=== PATIENT | female | born 1935 | race Caucasian/White ===

== ENCOUNTER 2016-07-10 13:48 | Emergency (ER) | payer MEDICARE, BC, OTHER ==
--- NOTE | 2016-07-10 14:21 | Emergency Department Record ---
History of Present Illness - General Chief Complaint: Neck Injury/Pain Stated Complaint: NECK PAIN /NIGHT TIME CHEST PAIN Time Seen by Provider: 07/10/16 14:00 Source: Patient Mode of Arrival: Ambulatory Limitations: No limitations - History of Present Illness Initial Comments: 80 yo female presents to ED with a CC of left sided, intermittent neck and chest pain symptoms for the past 2 days. Patient reports that her neck pain reoccurred today while at lunch with friends, while her chest pain occurs at night. Patient denies other radiation symptoms, denies fevers, chills, or recent illness symptoms. Patient reports a history of HTN only, denies previous heart or lung problems. Patient denies trauma or injury to the neck. MD Complaint: Neck pain Onset/Timin -: Days(s) Place: Home Radiation: Chest, Other Severity: Mild Severity scale (1-10): 3 Quality: Aching Consistency: Constant, Intermittent Improves With: None Worsens With: None Context: Other Associated Symptoms: None Treatments Prior to Arrival: None - Related Data Home Medications Medication Instructions Recorded Confirmed Last Taken Amlodipine Besylate [Amlodipine 10 mg PO DAILY 03/24/14 07/10/16 07/09/16 Besylate] Furosemide [Lasix] 40 mg PO DAILY 03/24/14 07/10/16 07/09/16 Losartan Potassium 100 mg PO DAILY 03/24/14 07/10/16 07/09/16 Metoprolol Succinate [Toprol Xl] 100 mg PO DAILY 03/24/14 07/10/16 07/09/16 Simvastatin [Zocor 20Mg] 20 mg PO QHS 03/24/14 07/10/16 07/09/16 Duloxetine HCl [Cymbalta] 30 mg PO DAILY 02/19/15 07/10/16 07/09/16 Previous Rx's Medication Instructions Recorded Diazepam [Valium] 5 mg PO Q8H PRN #15 tab 07/10/16 Allergies Allergy/AdvReac Type Severity Reaction Status Date / Time codeine AdvReac NAUSEA AND Verified 07/10/16 14:10 VOMITING meperidine HCl [From Demerol] AdvReac NAUSEA AND Verified 07/10/16 14:10 VOMITING morphine AdvReac NAUSEA AND Verified 07/10/16 14:10 VOMITING Travel Screening - Travel/Exposure Within Last 30 Days Have you traveled within the last 30 days?: No Review of Systems Constitutional: Denies: Chills, Fever, Malaise, Night sweats Eyes: Denies: Eye discharge, Eye pain ENT: Denies: Congestion, Ear pain, Epistaxis Respiratory: Denies: Cough, Dyspnea Cardiovascular: Reports: Chest pain. Denies: Dyspnea on exertion Endocrine: Denies: Fatigue, Heat or cold intolerance Gastrointestinal: Denies: Abdominal pain, Nausea, Vomiting Genitourinary: Denies: Dysuria, Frequency, Hematuria Musculoskeletal: Reports: Neck pain. Denies: Arthralgia, Back pain, Gout, Joint swelling Skin: Denies: Bruising, Change in color Neurological: Denies: Abnormal gait, Confusion, Headache, Seizure Psychiatric: Denies: Anxiety Hematological/Lymphatic: Denies: Anemia, Blood Clots Past Medical History - SOCIAL HISTORY Smoking Status: Never smoker Alcohol Use: None Drug Use: None - RESPIRATORY Hx Respiratory Disorders: No - CARDIOVASCULAR Hx Cardio Disorders: Yes Hx CHF: Yes Hx Edema: Yes Hx Hypertension: Yes Comment:: high cholesterol - NEURO Hx Neuro Disorders: No - GI Hx GI Disorders: Yes Hx of Polyps: Yes - Hx Genitourinary Disorders: No - ENDOCRINE Hx Endocrine Disorders: No - MUSCULOSKELETAL Hx Musculoskeletal Disorders: Yes Hx Back Injury: Yes Hx Gout: Yes - PSYCH Hx Psych Problems: Yes Hx Anxiety: Yes - HEMATOLOGY/ONCOLOGY Hx Hematology/Oncology Disorders: Yes Hx Cancer: Yes (skin (basal & squamous cell)) Family Medical History Any Significant Family History?: Yes Hx Heart Disease: Father, Mother Physical Exam - General General Appearance: Alert, Oriented x3, Cooperative, No acute distress Limitations: No limitations - Head Head exam: Atraumatic, Normocephalic, Normal inspection Head exam detail: negative: Abrasion, Contusion, Hinds's sign, General tenderness, Hematoma, Laceration - Eye Eye exam: Normal appearance. negative: Conjunctival injection, Periorbital swelling, Periorbital tenderness, Scleral icterus - ENT Ear exam: negative: Auricular hematoma, Auricular trauma Nasal Exam: negative: Active bleeding, Discharge, Dried blood, Foreign body Mouth exam: negative: Drooling, Laceration, Muffled voice, Tongue elevation - Neck Neck exam: Normal inspection. negative: Meningismus, Tenderness - Respiratory Respiratory exam: Normal lung sounds bilaterally. negative: Rales, Respiratory distress, Rhonchi, Stridor - Cardiovascular Cardiovascular Exam: Regular rate, Normal rhythm, Normal heart sounds - GI/Abdominal GI/Abdominal exam: Soft. negative: Rebound, Rigid, Tenderness - Rectal Rectal exam: Deferred - exam: Deferred - Extremities Extremities exam: Normal inspection. negative: Calf tenderness, Pedal edema, Tenderness - Back Back exam: Denies: CVA tenderness (R), CVA tenderness (L) - Neurological Neurological exam: Alert, Normal gait, Oriented X3 - Psychiatric Psychiatric exam: Normal affect, Normal mood - Skin Skin exam: Normal color. negative: Abrasion Type of lesion: negative: abrasion Course Vital Signs 07/10/16 14:06 Temperature 97.9 F Pulse Rate 81 Respiratory 20 Rate Blood Pressure 190/80 Pulse Ox 97 - Reevaluation(s) Reevaluation #1: 07/10/16 14:14 EKG: NSR 78 Normal axis, normal intervals ST depression I, AVL, V4-V6 NEW from 08/2004. Reevaluation #2: 07/10/16 14:39 Dr. Rajan has reviewed the patient's EKG, feels that the changes are likely non- significant. Recommends further cardiac evaluation as an outpatient. Patient' s symptoms only occur at night and at rest, and are atypical for a cardiac etiology. Patient has not had pain since last night (17-18 hours ago), therefore 1 Troponin should be sufficient to detect myocardial damage. Awaiting results. Reevaluation #3: 07/10/16 15:04 Labs reviewed, WBC 13.9, labs are otherwise grossly unremarkable for an acute process. CXR: No acute process, healed granulomatous disease. Patient reassessed, reports that she is resting comfortably and has not had pain since last night. Patient appears stable for discharge with instructions to follow-up in the [facility] for outpatient stress testing. Patient agrees with plan as discussed. Medical Decision Making - Lab Data Result diagrams: 07/10/16 14:25 07/10/16 14:25 Disposition Disposition: Discharge Clinical Impression: Muscle spasms of neck, Chest Pain at Rest Disposition: Home, Self-Care Condition: (2) Stable Instructions: Muscle Spasm (ED) Additional Instructions: Return to ED if your symptoms worsen or if you have any concerns. Valium as directed. Follow-up with the [facility] for outpatient stress testing. Follow-up with your family doctor in 3-5 days as directed. Prescriptions: Diazepam [Valium] 5 mg PO Q8H PRN #15 tab PRN Reason: Muscle Spasms Referrals: RANDELL RAJAN M.D. [MEDICAL DOCTOR] - [facility] [Provider Group] Forms: Patient Portal Access Time of Disposition: 15:12
[2016-07-10] MEDS: ASPIRIN 81 MG CHEWABLE TABLET PO ONE (14:23)
[2016-07-10 14:34] LABS: BASO % 0.4 % (0-6); EOS % 0.2 % (0-6); GRAN % 75.8 % (47-80); HEMATOCRIT 39.5 % (35.0-47.0); HEMOGLOBIN 12.9 gm/dl (11.6-16.0); LYMPH % 14.2 % (16-45); MEAN CELL VOLUME 95.9 fl (81-97); MEAN CORPUSCULAR HEMOGLOBIN 31.3 pg (27-33); MEAN CORPUSCULAR HGB CONC 32.7 g/dl (32-36); MEAN PLATELET VOLUME 10.8 fl (7.4-10.4); MONO % 9.4 % (0-9); PLATELET COUNT 243 K/uL (130-400); RED BLOOD COUNT 4.12 M/uL (3.80-5.40); RED CELL DISTRIBUTION WIDTH 12.8 % (11.5-14.5); WHITE BLOOD COUNT W/O DIFF 13.9 K/uL (4.2-12.2)
[2016-07-10 14:50] LABS: ALB/GLOB RATIO 1.6 (1.1-1.8); ALBUMIN 4.7 gm/dL (3.5-5.0); ALKALINE PHOSPHATASE 92 U/L (38-126); ALT/SGPT 32 U/L (9-52); ANION GAP 8.7 (7-16); AST/SGOT 24 U/L (14-36); BILIRUBIN,TOTAL 0.39 mg/dL (0.2-1.3); BLOOD UREA NITROGEN 14 mg/dL (7-17); CARBON DIOXIDE 30.3 mmol/L (22-30); CREATINE PHOSPHOKINASE 80 U/L (30-135); EST GLOMERULAR FILTRATION RATE 57 ml/min; GLUCOSE,RANDOM 254 mg/dL (70-110); TOTAL PROTEIN 7.7 gm/dL (6.3-8.2)
[2016-07-10 15:02] LABS: CKMB 2.2 ug/L (0-6); TROPONIN I < 0.012 ng/mL (0.00-0.034)
--- NOTE | 2016-07-12 13:43 | RADIOLOGY REPORT ---
EXAM: CHEST, TWO VIEWS HISTORY: DIFFUSE CHEST PAIN WORSE WITH LAYING DOWN. TECHNIQUE: Two views of the chest were obtained. Comparison: None. FINDINGS: Scattered calcified lung nodules. The lungs are clear. Calcified AP window lymph node. The cardiac silhouette, diaphragm, and osseous structures are unremarkable. IMPRESSION: NO ACUTE INTRATHORACIC PROCESS. OLD GRANULOMATOUS DISEASE. JOB NUMBER: [id number] MTDD
== END 2016-07-10 15:38 | disposition home or self-care (01) ==
LOC: ER 13:48
DX: R07.89 Other chest pain (principal); M62.838 Other muscle spasm; M54.2 Cervicalgia; I10 Essential (primary) hypertension; I50.9 Heart failure, unspecified
CPT/HCPCS: 71020; 80053; 82550; 82553; 84484; 85025; 93005; 93010; 99284

== ENCOUNTER 2016-08-17 09:58 | Emergency (ER) | payer MEDICARE, BC, OTHER ==
[2016-08-17 10:54] LABS: HEMATOCRIT 32.6 % (35.0-47.0); HEMOGLOBIN 10.1 gm/dl (11.6-16.0); MEAN CELL VOLUME 92.1 fl (81-97); MEAN CORPUSCULAR HEMOGLOBIN 28.5 pg (27-33); PLATELET COUNT 600 K/uL (130-400); RED BLOOD COUNT 3.54 M/uL (3.80-5.40); RED CELL DISTRIBUTION WIDTH 13.7 % (11.5-14.5); WHITE BLOOD COUNT W/O DIFF 14.7 K/uL (4.2-12.2)
[2016-08-17 11:07] LABS: BLOOD UREA NITROGEN 8 mg/dL (7-17); CREATININE 0.6 mg/dL (0.52-1.04); EST GLOMERULAR FILTRATION RATE > 60 ml/min; GLUCOSE,RANDOM 122 mg/dL (70-110)
--- NOTE | 2016-08-17 11:09 | Emergency Department Record ---
History of Present Illness - General Chief complaint: Extremity Problem Stated complaint: RIGHT HAND SWELLING Time Seen by Provider: 08/17/16 10:16 Source: Patient Mode of Arrival: Ambulatory Limitations: No limitations - History of Present Illness Initial comments: pt here for r hand pain. pt has been seen by fam doc who referred pt to [employer] a month ago. pt has been told twice that they did not receive the referral. pt here in frustration as she still does not have an appt and she conts to be in pain. pt has been on a course of steroids MD Complaint: Joint pain, Joint swelling Onset/Timin -: Month(s) Location: Right, Hand -: Yes Arthralgia Severity scale (1-10): 8 Improves with: Nothing Worsens with: Nothing Associated Symptoms: Denies other symptoms - Related Data Home Medications Medication Instructions Recorded Confirmed Last Taken Amlodipine Besylate [Amlodipine 10 mg PO DAILY 03/24/14 08/17/16 08/16/16 Besylate] Furosemide [Lasix] 40 mg PO DAILY 03/24/14 08/17/16 08/17/16 Losartan Potassium 100 mg PO DAILY 03/24/14 08/17/16 08/17/16 Metoprolol Succinate [Toprol Xl] 100 mg PO DAILY 03/24/14 08/17/16 08/17/16 Simvastatin [Zocor 20Mg] 20 mg PO QHS 03/24/14 08/17/16 08/16/16 Duloxetine HCl [Cymbalta] 30 mg PO DAILY 02/19/15 08/17/16 08/17/16 Previous Rx's Medication Instructions Recorded Diazepam [Valium] 5 mg PO Q8H PRN #15 tab 07/10/16 Allergies Allergy/AdvReac Type Severity Reaction Status Date / Time codeine AdvReac NAUSEA AND Verified 07/10/16 14:10 VOMITING meperidine HCl [From Demerol] AdvReac NAUSEA AND Verified 07/10/16 14:10 VOMITING morphine AdvReac NAUSEA AND Verified 07/10/16 14:10 VOMITING Travel Screening - Travel/Exposure Within Last 30 Days Have you traveled within the last 30 days?: No - Travel/Exposure Within Last Year Have you traveled outside the [place] in the last year?: No - Additonal Travel Details Have you been exposed to anyone with a communicable illness?: No Review of Systems Reviewed: No additional complaints except as noted below Constitutional: Reports: As per HPI. Denies: Chills, Fever, Malaise, Night sweats, Weakness, Weight change Eyes: Reports: As per HPI. Denies: Eye discharge, Eye pain, Photophobia, Vision change ENT: Reports: As per HPI. Denies: Congestion, Dental pain, Ear pain, Epistaxis , Hearing loss, Throat pain Respiratory: Reports: As per HPI. Denies: Cough, Dyspnea, Hemoptysis, Stridor, Wheezes Cardiovascular: Reports: As per HPI. Denies: Arrhythmia, Chest pain, Dyspnea on exertion, Edema, Murmurs, Orthopnea, Palpitations, Paroxysmal nocturnal dyspnea, Rheumatic Fever, Syncope Endocrine: Reports: As per HPI. Denies: Fatigue, Heat or cold intolerance, Polydipsia, Polyuria Gastrointestinal: Reports: As per HPI. Denies: Abdominal pain, Constipation, Diarrhea, Hematemesis, Hematochezia, Melena, Nausea, Vomiting Genitourinary: Reports: As per HPI. Denies: Abnormal menses, Discharge, Dyspareunia, Dysuria, Frequency, Hematuria, Incontinence, Retention, Urgency Musculoskeletal: Reports: As per HPI. Denies: Arthralgia, Back pain, Gout, Joint swelling, Myalgia, Neck pain Skin: Reports: As per HPI. Denies: Bruising, Change in color, Change in hair/ nails, Lesions, Pruritus, Rash Neurological: Reports: As per HPI. Denies: Abnormal gait, Confusion, Headache, Numbness, Paresthesias, Seizure, Tingling, Tremors, Vertigo, Weakness Psychiatric: Reports: As per HPI. Denies: Anxiety, Auditory hallucinations, Depression, Homicidal thoughts, Suicidal thoughts, Visual hallucinations Hematological/Lymphatic: Reports: As per HPI. Denies: Anemia, Blood Clots, Easy bleeding, Easy bruising, Swollen glands Past Medical History - SOCIAL HISTORY Smoking Status: Never smoker Alcohol Use: None Drug Use: None - RESPIRATORY Hx Respiratory Disorders: No - CARDIOVASCULAR Hx Cardio Disorders: Yes Hx CHF: Yes Hx Edema: Yes Hx Hypertension: Yes Comment:: high cholesterol - NEURO Hx Neuro Disorders: No - GI Hx GI Disorders: Yes Hx of Polyps: Yes - Hx Genitourinary Disorders: No - ENDOCRINE Hx Endocrine Disorders: No - MUSCULOSKELETAL Hx Musculoskeletal Disorders: Yes Hx Back Injury: Yes Hx Gout: Yes - PSYCH Hx Psych Problems: Yes Hx Anxiety: Yes - HEMATOLOGY/ONCOLOGY Hx Hematology/Oncology Disorders: Yes Hx Cancer: Yes (skin (basal & squamous cell)) Family Medical History Any Significant Family History?: No Hx Heart Disease: Father, Mother Physical Exam - General General Appearance: Alert, Oriented x3, Cooperative, Mild distress - Head Head exam: Normal inspection - Eye Eye exam: Normal appearance, PERRL, EOMI Pupils: Normal accommodation - ENT ENT exam: Normal exam, Mucous membranes moist, Normal external ear exam, Normal orophraynx Ear exam: Normal external inspection. negative: External canal tenderness Nasal Exam: Normal inspection. negative: Discharge, Sinus tenderness Mouth exam: Normal external inspection, Tongue normal Teeth exam: Normal inspection. negative: Dental caries Throat exam: Normal inspection. negative: Tonsillar erythema, Tonsillar exudate - Neck Neck exam: Normal inspection, Full ROM. negative: Tenderness - Respiratory Respiratory exam: Normal lung sounds bilaterally. negative: Respiratory distress - Cardiovascular Cardiovascular Exam: Regular rate, Normal rhythm, Normal heart sounds - GI/Abdominal GI/Abdominal exam: Soft, Normal bowel sounds. negative: Tenderness - Rectal Rectal exam: Deferred - exam: Deferred - Extremities Extremities exam: Full ROM, Joint swelling, Normal capillary refill, Tenderness Image of Hand: 1 - swelling and tenderness - Back Back exam: Reports: Normal inspection, Full ROM. Denies: Muscle spasm, Rash noted, Tenderness - Neurological Neurological exam: Alert, CN II-XII intact, Normal gait, Oriented X3 - Psychiatric Psychiatric exam: Normal affect, Normal mood - Skin Skin exam: Dry, Intact, Normal color, Warm Course Vital Signs 08/17/16 10:02 Temperature 98.9 F Pulse Rate 81 Respiratory 16 Rate Blood Pressure 165/69 Pulse Ox 96 - Reevaluation(s) Reevaluation #1: 08/17/16 11:10 [facility] [employer] called and they will see pt on saturday at 2:20 Medical Decision Making - Management Options MDM Management: Additional Work-up Planned (e.g. ADM/Transfer/OP Study) - Data Complexity MDM Data: Labs Ordered and/or Reviewed, X-Ray Ordered and/or Reviewed - Lab Data Result diagrams: 08/17/16 10:48 08/17/16 10:48 Lab Results 08/17/16 Range/Units 10:48 WBC 14.7 H (4.2-12.2) K/uL RBC 3.54 L (3.80-5.40) M/uL Hgb 10.1 L (11.6-16.0) gm/dl Hct 32.6 L (35.0-47.0) % MCV 92.1 (81-97) fl MCH 28.5 (27-33) pg MCHC 31.0 L (32-36) g/dl RDW 13.7 (11.5-14.5) % Plt Count 600 H (130-400) K/uL MPV 9.0 (7.4-10.4) fl Eosinophils % Not Reportable Basophils % Not Reportable Disposition Disposition: Discharge Clinical Impression: Joint swelling Disposition: Home, Self-Care Condition: (1) Good Instructions: Osteoarthritis (ED) Additional Instructions: follow up with family doctor. follow up with [employer] on saturday at 2:20. return sooner if worse. moist heat Forms: Patient Portal Access
[2016-08-17] MEDS ORDERED: METHYLPREDNISOLONE PF 125MG/VIAL IM ONE (11:13)
[2016-08-17 11:30] LABS: ERYTHROCYTE SEDIMENTATION RATE 106 mm/hr (0-30)
== END 2016-08-17 11:57 | disposition home or self-care (01) ==
LOC: ER 09:58
DX: M25.441 Effusion, right hand (principal); M79.641 Pain in right hand
CPT/HCPCS: 80048; 85027; 85651; 86140; 86430; 96372; 99283; 99284; J2930

== ENCOUNTER 2018-11-14 15:17 | Emergency (ER) | payer MEDICARE, BC, OTHER ==
--- NOTE | 2018-11-14 16:51 | Emergency Department Record ---
History of Present Illness - General Chief Complaint: Dizziness Stated Complaint: BLURRY VISION/HEADACHE Time Seen by Provider: 11/14/18 16:12 Source: Patient Mode of Arrival: Ambulatory - History of Present Illness Initial Comments: couple days of blurred vision and dizzy and balance off getting . No chest pain no vomiting no SOB and Dr Chavez is her primary , both eyes Onset/Timin -: Days(s) Timing: Gradual onset Description: Difficulty walking, Off-balance History of Same: No History of Trauma: No Improves With: Nothing Worsens With: Nothing Associated Symptoms: Denies other symptoms - [place] Coma Scale Eye Response: (4) Open spontaneously Motor Response: (6) Obeys commands Verbal Response: (5) Oriented [place] Total: 15 - Symptoms of Stroke Symptoms of stroke: Unsteady When Walking - Related Data Previous Rx's Medication Instructions Recorded Diazepam [Valium] 5 mg PO Q8H PRN #15 tab 07/10/16 Allergies Allergy/AdvReac Type Severity Reaction Status Date / Time codeine AdvReac NAUSEA AND Verified 11/14/18 16:04 VOMITING meperidine HCl [From Demerol] AdvReac NAUSEA AND Verified 11/14/18 16:04 VOMITING morphine AdvReac NAUSEA AND Verified 11/14/18 16:04 VOMITING Travel Screening - Travel/Exposure Within Last 30 Days Have you traveled within the last 30 days?: No Review of Systems Reviewed: No additional complaints except as noted below Constitutional: Reports: As per HPI. Denies: Chills, Fever, Malaise, Night sweats, Weakness, Weight change Eyes: Reports: As per HPI, Vision change. Denies: Eye discharge, Eye pain, Photophobia ENT: Reports: As per HPI. Denies: Congestion, Dental pain, Ear pain, Epistaxis, Hearing loss, Throat pain Respiratory: Reports: As per HPI. Denies: Cough, Dyspnea, Hemoptysis, Stridor, Wheezes Cardiovascular: Reports: As per HPI. Denies: Arrhythmia, Chest pain, Dyspnea on exertion, Edema, Murmurs, Orthopnea, Palpitations, Paroxysmal nocturnal dyspnea, Rheumatic Fever, Syncope Endocrine: Reports: As per HPI. Denies: Fatigue, Heat or cold intolerance, Polydipsia, Polyuria Gastrointestinal: Reports: As per HPI. Denies: Abdominal pain, Constipation, Diarrhea, Hematemesis, Hematochezia, Melena, Nausea, Vomiting Genitourinary: Reports: As per HPI. Denies: Abnormal menses, Discharge, Dyspareunia, Dysuria, Frequency, Hematuria, Incontinence, Retention, Urgency Musculoskeletal: Reports: As per HPI. Denies: Arthralgia, Back pain, Gout, Joint swelling, Myalgia, Neck pain Skin: Reports: As per HPI. Denies: Bruising, Change in color, Change in hair/nails, Lesions, Pruritus, Rash Neurological: Reports: As per HPI. Denies: Abnormal gait, Confusion, Headache, Numbness, Paresthesias, Seizure, Tingling, Tremors, Vertigo, Weakness Psychiatric: Reports: As per HPI. Denies: Anxiety, Auditory hallucinations, Dep ression, Homicidal thoughts, Suicidal thoughts, Visual hallucinations Hematological/Lymphatic: Reports: As per HPI. Denies: Anemia, Blood Clots, Easy bleeding, Easy bruising, Swollen glands Past Medical History - SOCIAL HISTORY Smoking Status: Never smoker Alcohol Use: None Drug Use: None - RESPIRATORY Hx Respiratory Disorders: No - CARDIOVASCULAR Hx Cardio Disorders: Yes Hx CHF: Yes Hx Edema: Yes Hx Hypertension: Yes Comment:: high cholesterol - NEURO Hx Neuro Disorders: No - GI Hx GI Disorders: Yes Hx of Polyps: Yes - Hx Genitourinary Disorders: No - ENDOCRINE Hx Endocrine Disorders: No - MUSCULOSKELETAL Hx Musculoskeletal Disorders: Yes Hx Back Injury: Yes Hx Gout: Yes - PSYCH Hx Psych Problems: Yes Hx Anxiety: Yes - HEMATOLOGY/ONCOLOGY Hx Hematology/Oncology Disorders: Yes Hx Cancer: Yes (skin (basal & squamous cell)) Family Medical History Any Significant Family History?: Yes Hx Heart Disease: Father, Mother Physical Exam - General General Appearance: Alert, Oriented x3, Cooperative, No acute distress - Head Head exam: Normal inspection - Eye Eye exam: Normal appearance, PERRL Pupils: Normal accommodation - ENT ENT exam: Normal exam, Mucous membranes moist, Normal external ear exam, Normal orophraynx, TM's normal bilaterally Ear exam: Normal external inspection. negative: External canal tenderness Nasal Exam: Normal inspection. negative: Discharge, Sinus tenderness Mouth exam: Normal external inspection, Tongue normal Teeth exam: Normal inspection. negative: Dental caries Throat exam: Normal inspection. negative: Tonsillar erythema, Tonsillar exudate - Neck Neck exam: Normal inspection, Full ROM. negative: Tenderness - Respiratory Respiratory exam: Normal lung sounds bilaterally. negative: Respiratory distress - Cardiovascular Cardiovascular Exam: Regular rate, Normal rhythm, Normal heart sounds - GI/Abdominal GI/Abdominal exam: Soft, Normal bowel sounds. negative: Tenderness - Rectal Rectal exam: Deferred - exam: Deferred - Extremities Extremities exam: Normal inspection, Full ROM, Normal capillary refill. negative: Tenderness - Back Back exam: Reports: Normal inspection, Full ROM. Denies: Muscle spasm, Rash no jeannie, Tenderness - Neurological Neurological exam: Alert, Normal gait, Oriented X3, Reflexes normal - Psychiatric Psychiatric exam: Normal affect, Normal mood - Skin Skin exam: Dry, Intact, Normal color, Warm Course Vital Signs 11/14/18 16:01 Temperature 98.3 F Pulse Rate 81 Respiratory 20 Rate Blood Pressure 167/69 Pulse Ox 97 Medical Decision Making - Data Complexity MDM Data: Labs Ordered and/or Reviewed, X-Ray Ordered and/or Reviewed (CT head no acute changes ,chronic changes), EKG Ordered and/or Reviewed - Lab Data Result diagrams: 11/14/18 17:15 11/14/18 17:15 Disposition Clinical Impression: Dehydration, Blurred vision, bilateral Disposition: Home, Self-Care Condition: (1) Good Instructions: Dizziness (ED), Dehydration (ED) Additional Instructions: follow up with Dr Chavez next week if worse go to [facility] ED drink more fluid Time of Disposition: 18:35 Quality - Quality Measures Quality Measures: N/A - Blood Pressure Screening Does Patient Have Any of the Following: No, Active Dx of HTN Blood Pressure Classification: Hypertensive Reading Systolic Measurement: 167 Diastolic Measurement: 69 Screening for High Blood Pressure: Patient Exclusion, Hx of HTN [[id number]]
[2018-11-14 17:22] LABS: ABSOLUTE NEUTROPHIL COUNT 5.66; BASO % 0.7 % (0-6); EOS % 0.6 % (0-6); GRAN % 59.7 % (47-80); HEMOGLOBIN 14.3 gm/dl (11.6-16.0); LYMPH % 28.5 % (16-45); MEAN CELL VOLUME 93.2 fl (81-97); MEAN CORPUSCULAR HEMOGLOBIN 30.3 pg (27-33); MEAN CORPUSCULAR HGB CONC 32.5 g/dl (32-36); MEAN PLATELET VOLUME 10.9 fl (7.4-10.4); MONO % 10.5 % (0-9); PLATELET COUNT 249 K/uL (130-400); RED BLOOD COUNT 4.72 M/uL (3.80-5.40); RED CELL DISTRIBUTION WIDTH 13.3 % (11.5-14.5); WHITE BLOOD COUNT W/O DIFF 9.5 K/uL (4.2-12.2)
[2018-11-14 17:31] LABS: BLOOD UREA NITROGEN 13 mg/dL (8-23); CREATININE 0.9 mg/dL (0.5-0.9); EST GLOMERULAR FILTRATION RATE > 60 mL/min
[2018-11-14 17:34] LABS: GLUCOSE,RANDOM 275 mg/dL (74-109)
--- NOTE | 2018-11-15 22:34 | CT SCAN REPORT ---
EXAM: CT SCAN HEAD WO CONTRAST HISTORY: DIZZINESS, HEADACHE, RIGHT BLURRED VISION FOR THREE DAYS. TECHNIQUE: Axial CT scan of the head performed without IV contrast. COMPARISON: Head CT dated 03/24/14. FINDINGS: No definite acute intracranial hemorrhage identified. No focal mass effect or midline shift evident. No definite acute infarct or intracranial mass lesion seen. 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 There is probably a tiny chronic lacunar infarct in the right basal ganglia. There is likely a calcified sebaceous cyst in the deep scalp of the right parietal region anteriorly. IMPRESSION: 1. 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 2. NO DEFINITE ACUTE INTRACRANIAL HEMORRHAGE OR FOCAL MASS EFFECT EVIDENT. JOB NUMBER: [id number] MTDD
== END 2018-11-14 18:52 | disposition home or self-care (01) ==
LOC: ER 15:17
DX: E86.0 Dehydration (principal); R51 Headache; R42 Dizziness and giddiness; H53.8 Other visual disturbances; I50.9 Heart failure, unspecified; I10 Essential (primary) hypertension
CPT/HCPCS: 70450; 80048; 85025; 85730; 93005; 93010; 99284

== ENCOUNTER 2018-11-22 12:42 | Emergency (ER) | payer MEDICARE, BC, OTHER ==
--- NOTE | 2018-11-22 13:19 | Emergency Department Record ---
History of Present Illness - General Chief complaint: Eye Problem Stated complaint: BLURRED VISION Time Seen by Provider: 11/22/18 13:05 Source: Patient - History of Present Illness Initial comments: The patient states that her head feels weird and that both her eyes are blurred. She had cataract surgery years ago, but has not seen an eye doctor since. She uses reading glasses. Her son at the bedside states she forgot where she was going while she was driving here. She also stated she is on insulin and has to give herself shots, but the family states she only takes metformin. She denies other symptoms. chief complaint: Other (vision blurred both eyes) - Related Data Home Medications Medication Instructions Recorded Confirmed Last Taken Metformin HCl 500 mg PO DAILY 11/22/18 11/22/18 11/22/18 Previous Rx's Medication Instructions Recorded Diazepam [Valium] 5 mg PO Q8H PRN #15 tab 07/10/16 Allergies Allergy/AdvReac Type Severity Reaction Status Date / Time codeine AdvReac NAUSEA AND Verified 11/22/18 12:49 VOMITING meperidine HCl [From Demerol] AdvReac NAUSEA AND Verified 11/22/18 12:49 VOMITING morphine AdvReac NAUSEA AND Verified 11/22/18 12:49 VOMITING Review of Systems Reviewed: No additional complaints except as noted below Constitutional: Reports: As per HPI. Denies: Chills, Fever, Malaise, Night sweats, Weakness, Weight change Eyes: Reports: As per HPI. Denies: Eye discharge, Eye pain, Photophobia, Vision change ENT: Reports: As per HPI. Denies: Congestion, Dental pain, Ear pain, Epistaxis, Hearing loss, Throat pain Respiratory: Reports: As per HPI. Denies: Cough, Dyspnea, Hemoptysis, Stridor, Wheezes Cardiovascular: Reports: As per HPI. Denies: Arrhythmia, Chest pain, Dyspnea on exertion, Edema, Murmurs, Orthopnea, Palpitations, Paroxysmal nocturnal dyspnea, Rheumatic Fever, Syncope Endocrine: Reports: As per HPI. Denies: Fatigue, Heat or cold intolerance, Polydipsia, Polyuria Gastrointestinal: Reports: As per HPI. Denies: Abdominal pain, Constipation, Diarrhea, Hematemesis, Hematochezia, Melena, Nausea, Vomiting Genitourinary: Reports: As per HPI. Denies: Abnormal menses, Discharge, Dyspareunia, Dysuria, Frequency, Hematuria, Incontinence, Retention, Urgency Musculoskeletal: Reports: As per HPI. Denies: Arthralgia, Back pain, Gout, Joint swelling, Myalgia, Neck pain Skin: Reports: As per HPI. Denies: Bruising, Change in color, Change in hair/nails, Lesions, Pruritus, Rash Neurological: Reports: As per HPI. Denies: Abnormal gait, Confusion, Headache, Numbness, Paresthesias, Seizure, Tingling, Tremors, Vertigo, Weakness Psychiatric: Reports: As per HPI. Denies: Anxiety, Auditory hallucinations, Depression, Homicidal thoughts, Suicidal thoughts, Visual hallucinations Hematological/Lymphatic: Reports: As per HPI. Denies: Anemia, Blood Clots, Easy bleeding, Easy bruising, Swollen glands Past Medical History - SOCIAL HISTORY Smoking Status: Never smoker Drug Use: None - RESPIRATORY Hx Respiratory Disorders: No - CARDIOVASCULAR Hx Cardio Disorders: Yes Hx CHF: Yes Hx Edema: Yes Hx Hypertension: Yes Comment:: high cholesterol - NEURO Hx Neuro Disorders: No - GI Hx GI Disorders: Yes Hx of Polyps: Yes - Hx Genitourinary Disorders: No - ENDOCRINE Hx Endocrine Disorders: No - MUSCULOSKELETAL Hx Musculoskeletal Disorders: Yes Hx Back Injury: Yes Hx Gout: Yes - PSYCH Hx Psych Problems: Yes Hx Anxiety: Yes - HEMATOLOGY/ONCOLOGY Hx Hematology/Oncology Disorders: Yes Hx Cancer: Yes (skin (basal & squamous cell)) Family Medical History Hx Heart Disease: Father, Mother Physical Exam - General General Appearance: Alert, Oriented x3, Cooperative, No acute distress, Other (has asked the same question more than once in just a few minutes) - Head Head exam: Normal inspection - Eye Eye exam: Normal appearance, PERRL, EOMI. negative: Conjunctival injection, Nystagmus Pupils: Normal accommodation - ENT ENT exam: Normal exam, Mucous membranes moist, Normal external ear exam, Normal orophraynx, TM's normal bilaterally Ear exam: Normal external inspection. negative: External canal tenderness Nasal Exam: Normal inspection. negative: Discharge, Sinus tenderness Mouth exam: Normal external inspection, Tongue normal Teeth exam: Normal inspection. negative: Dental caries Throat exam: Normal inspection. negative: Tonsillar erythema, Tonsillar exudate - Neck Neck exam: Normal inspection, Full ROM, Other (no carotidfs bruits). negative: Lymphadenopathy, Meningismus, Tenderness - Respiratory Respiratory exam: Normal lung sounds bilaterally. negative: Respiratory distr ess - Cardiovascular Cardiovascular Exam: Regular rate, Normal rhythm, Normal heart sounds - GI/Abdominal GI/Abdominal exam: Soft, Normal bowel sounds. negative: Tenderness - Rectal Rectal exam: Deferred - exam: Deferred - Extremities Extremities exam: Normal inspection, Full ROM, Normal capillary refill. negative: Calf tenderness, Pedal edema, Tenderness - Back Back exam: Reports: Normal inspection, Full ROM. Denies: Muscle spasm, Rash noted, Tenderness - Neurological Neurological exam: Alert, Normal gait, Oriented X3, Reflexes normal - Psychiatric Psychiatric exam: Normal affect, Normal mood - Skin Skin exam: Dry, Intact, Normal color, Warm Course - Reevaluation(s) Reevaluation #1: the patient was given 2 large glasses of water to drink prior to DC home. She wa s not will to wait any longer. 11/22/18 15:49 Medical Decision Making - Management Options MDM Management: No Additional Work-up Planned (PCP follow up) - Data Complexity MDM Data: Labs Ordered and/or Reviewed, X-Ray Ordered and/or Reviewed (Noncontrast Head CT: SVID, chronic atrophy, no acute abnormality.), EKG Ordered and/or Reviewed (EKG: NSR@71/min, LVH, poor R wave progression, no acute changes, unchanged from prior of 11-14-18.) - Lab Data Result diagrams: 11/22/18 13:50 11/22/18 13:50 Disposition Disposition: Discharge Clinical Impression: Blurry vision, bilateral Hyperglycemia due to type 2 diabetes mellitus Qualifiers: Diabetes mellitus termite control servicer insulin use: without termite control servicer use Qualified Code(s): E11.65 - Type 2 diabetes mellitus with hyperglycemia Dementia Qualifiers: Dementia type: unspecified type Dementia behavioral disturbance: without behavioral disturbance Qualified Code(s): F03.90 - Unspecified dementia without behavioral disturbance Condition: (2) Stable Instructions: How to Check Your Blood Sugar (ED), Type 2 Diabetes in Adults (ED) Additional Instructions: Continue present medications with a second person monitoring all prescriptions. Family meeting with your PCP to manage dementia. PCP follow up for further management of your diabetes. Increase fluid intake. Quality - Quality Measures Quality Measures: N/A - Blood Pressure Screening Does Patient Have Any of the Following: No Blood Pressure Classification: Pre-Hypertensive BP Reading Systolic Measurement: 131 Diastolic Measurement: 64 Screening for High Blood Pressure: < Pre-Hypertensive BP, F/U Documented > [G8950] Pre-Hypertensive Follow-up Interventions: Follow-up with rescreen every year.
[2018-11-22 13:56] LABS: ABSOLUTE NEUTROPHIL COUNT 6.41; BASO % 0.5 % (0-6); EOS % 0.6 % (0-6); GRAN % 64.5 % (47-80); HEMOGLOBIN 14.5 gm/dl (11.6-16.0); LYMPH % 26.1 % (16-45); MEAN CELL VOLUME 92.6 fl (81-97); MEAN CORPUSCULAR HEMOGLOBIN 30.5 pg (27-33); MEAN PLATELET VOLUME 10.9 fl (7.4-10.4); MONO % 8.3 % (0-9); PLATELET COUNT 273 K/uL (130-400); RED BLOOD COUNT 4.75 M/uL (3.80-5.40); RED CELL DISTRIBUTION WIDTH 13.3 % (11.5-14.5)
[2018-11-22 14:00] LABS: URINE APPEARANCE CLEAR; URINE BILIRUBIN NEGATIVE (NEGATIVE); URINE BLOOD NEGATIVE (NEGATIVE); URINE COLOR YELLOW; URINE KETONE NEGATIVE (NEGATIVE); URINE LEUKOCYTE ESTERASE NEGATIVE (NEGATIVE); URINE NITRITE NEGATIVE (NEGATIVE); URINE PROTEIN NEGATIVE (NEGATIVE); URINE UROBILINOGEN 0.2 E.U./dL (0.20 - 1.00)
[2018-11-22 14:01] LABS: URINE GLUCOSE (UA) >=1000 mg/dL (NEGATIVE)
[2018-11-22 14:12] LABS: PARTIAL THROMBOPLASTIN TIME 24.2 SECONDS (24.5-39.1); PROTHROMBIN TIME (PATIENT) 10.3 SECONDS (9.5-12.1)
[2018-11-22 14:13] LABS: BLOOD UREA NITROGEN 21 mg/dL (8-23)
[2018-11-22 14:14] LABS: CREATININE 0.9 mg/dL (0.5-0.9); EST GLOMERULAR FILTRATION RATE > 60 mL/min; TOTAL PROTEIN 8.1 g/dL (6.6-8.7)
[2018-11-22 14:16] LABS: GLUCOSE,RANDOM 220 mg/dL (74-109)
[2018-11-22 14:17] LABS: LACTIC ACID 2.5 mmol/L (0.5-2.2)
[2018-11-22 14:19] LABS: ALB/GLOB RATIO 1.5 (1.1-1.8); ALBUMIN 4.8 g/dL (4.0-5.0); ALKALINE PHOSPHATASE 112 U/L (35-104); ALT/SGPT 29 U/L (<33); AST/SGOT 27 U/L (10.0-35.0)
--- NOTE | 2018-11-24 12:21 | CT SCAN REPORT ---
EXAM: CT SCAN OF THE BRAIN WITHOUT CONTRAST HISTORY: BLURRED VISION TODAY. TECHNIQUE: Standard CT imaging of the brain was performed without contrast. Additional coronal and sagittal reformatted images were also performed. Comparison: 11/14/18. FINDINGS: There is mild generalized atrophy. The ventricles and subarachnoid spaces are otherwise normal. Mild chronic small vessel ischemic changes are present within the periventricular and subcortical white matter at both cerebral hemispheres and are unchanged. 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 There is no mass, mass effect, intracranial hemorrhage, visible acute infarct, or abnormal extraaxial fluid. The skull is intact. The orbits and sinuses are normal. Three is trace effusion within the left mastoid air cells. The right mastoid air cells are clear. IMPRESSION: 1. NO ACUTE INTRACRANIAL ABNORMALITY. 2. STABLE MILD ATROPHY AND CHRONIC SMALL VESSEL ISCHEMIC CHANGES. 3. MINOR NONSPECIFIC FLUID WITHIN THE LEFT MASTOID AIR CELLS. JOB NUMBER: [id number] MTDD
== END 2018-11-22 16:01 | disposition home or self-care (01) ==
LOC: ER 12:42
DX: H53.8 Other visual disturbances (principal); I50.9 Heart failure, unspecified; I10 Essential (primary) hypertension; F03.90 Unspecified dementia, unspecified severity, without behavioral disturbance, psychotic disturbance, mood disturbance, and anxiety; Z79.84 Long term (current) use of oral hypoglycemic drugs; E11.65 Type 2 diabetes mellitus with hyperglycemia
CPT/HCPCS: 70450; 80053; 81003; 82009; 82800; 83605; 84443; 85025; 85610; 85730; 93005; 93010; 99284

== ENCOUNTER 2018-11-24 10:22 | Emergency (ER) | payer MEDICARE, BC, OTHER ==
[2018-11-24 11:28] LABS: URINE APPEARANCE CLEAR; URINE BILIRUBIN NEGATIVE (NEGATIVE); URINE BLOOD NEGATIVE (NEGATIVE); URINE COLOR YELLOW; URINE KETONE NEGATIVE (NEGATIVE); URINE LEUKOCYTE ESTERASE NEGATIVE (NEGATIVE); URINE NITRITE NEGATIVE (NEGATIVE); URINE PROTEIN NEGATIVE (NEGATIVE); URINE UROBILINOGEN 0.2 E.U./dL (0.20 - 1.00)
[2018-11-24 11:29] LABS: BASO % 0.4 % (0-6); EOS % 0.7 % (0-6); GRAN % 66.4 % (47-80); HEMATOCRIT 43.4 % (35.0-47.0); HEMOGLOBIN 14.1 gm/dl (11.6-16.0); LYMPH % 25.1 % (16-45); MEAN CELL VOLUME 93.9 fl (81-97); MEAN CORPUSCULAR HEMOGLOBIN 30.5 pg (27-33); MEAN CORPUSCULAR HGB CONC 32.5 g/dl (32-36); MEAN PLATELET VOLUME 11.2 fl (7.4-10.4); MONO % 7.4 % (0-9); PLATELET COUNT 280 K/uL (130-400); RED BLOOD COUNT 4.62 M/uL (3.80-5.40); WHITE BLOOD COUNT W/O DIFF 13.4 K/uL (4.2-12.2)
[2018-11-24 11:30] LABS: URINE GLUCOSE (UA) >=1000 mg/dL (NEGATIVE)
[2018-11-24 12:41] LABS: ALB/GLOB RATIO 1.7 (1.1-1.8); ALBUMIN 4.9 g/dL (4.0-5.0); BILIRUBIN,TOTAL 0.3 mg/dL (0.2-1.0); CREATININE 1.1 mg/dL (0.5-0.9); TOTAL PROTEIN 7.8 g/dL (6.6-8.7)
[2018-11-24 12:52] LABS: THYROID STIMULATING HORMONE 1.68 uIU/mL (0.270-4.20)
--- NOTE | 2018-11-24 13:24 | Emergency Department Record ---
History of Present Illness - General Chief Complaint: Hypertension Stated Complaint: BLOOD PRESSURE PROBLEMS Time Seen by Provider: 11/24/18 10:28 Source: Patient Mode of Arrival: Ambulatory Limitations: No limitations - History of Present Illness Initial Comments: pt here because she feels funny and her vision was blurry. she was here 2 days agofor the same complaint and had a neg head ct Complaint: Dizziness Onset/Timin -: Hour(s) Timing: Awoke with symptoms Description: Lightheadedness History of Same: Yes History of Trauma: No Improves With: Nothing Worsens With: Nothing Associated Symptoms: Denies other symptoms - Dirk Coma Scale Eye Response: (4) Open spontaneously Motor Response: (6) Obeys commands Verbal Response: (5) Oriented Dirk Total: 15 - Symptoms of Stroke Symptoms of stroke: Dizziness - Related Data Allergies Allergy/AdvReac Type Severity Reaction Status Date / Time codeine AdvReac NAUSEA AND Verified 11/24/18 10:34 VOMITING meperidine HCl [From Demerol] AdvReac NAUSEA AND Verified 11/24/18 10:34 VOMITING morphine AdvReac NAUSEA AND Verified 11/24/18 10:34 VOMITING Travel Screening - Travel/Exposure Within Last 30 Days Have you traveled within the last 30 days?: No Review of Systems Reviewed: No additional complaints except as noted below Constitutional: Reports: As per HPI. Denies: Chills, Fever, Malaise, Night sweats, Weakness, Weight change Eyes: Reports: As per HPI. Denies: Eye discharge, Eye pain, Photophobia, Vision change ENT: Reports: As per HPI. Denies: Congestion, Dental pain, Ear pain, Epistaxis, Hearing loss, Throat pain Respiratory: Reports: As per HPI. Denies: Cough, Dyspnea, Hemoptysis, Stridor, Wheezes Cardiovascular: Reports: As per HPI. Denies: Arrhythmia, Chest pain, Dyspnea on exertion, Edema, Murmurs, Orthopnea, Palpitations, Paroxysmal nocturnal dyspnea, Rheumatic Fever, Syncope Endocrine: Reports: As per HPI. Denies: Fatigue, Heat or cold intolerance, Polydipsia, Polyuria Gastrointestinal: Reports: As per HPI. Denies: Abdominal pain, Constipation, Diarrhea, Hematemesis, Hematochezia, Melena, Nausea, Vomiting Genitourinary: Reports: As per HPI. Denies: Abnormal menses, Discharge, Dyspareunia, Dysuria, Frequency, Hematuria, Incontinence, Retention, Urgency Musculoskeletal: Reports: As per HPI. Denies: Arthralgia, Back pain, Gout, Joint swelling, Myalgia, Neck pain Skin: Reports: As per HPI. Denies: Bruising, Change in color, Change in hair/nails, Lesions, Pruritus, Rash Neurological: Reports: As per HPI. Denies: Abnormal gait, Confusion, Headache, Numbness, Paresthesias, Seizure, Tingling, Tremors, Vertigo, Weakness Psychiatric: Reports: As per HPI. Denies: Anxiety, Auditory hallucinations, Depression, Homicidal thoughts, Suicidal thoughts, Visual hallucinations Hematological/Lymphatic: Reports: As per HPI. Denies: Anemia, Blood Clots, Easy bleeding, Easy bruising, Swollen glands Past Medical History - SOCIAL HISTORY Smoking Status: Never smoker Alcohol Use: None Drug Use: None - RESPIRATORY Hx Respiratory Disorders: No - CARDIOVASCULAR Hx Cardio Disorders: Yes Hx CHF: Yes Hx Edema: Yes Hx Hypertension: Yes Comment:: high cholesterol - NEURO Hx Neuro Disorders: No - GI Hx GI Disorders: Yes Hx of Polyps: Yes - Hx Genitourinary Disorders: No - ENDOCRINE Hx Endocrine Disorders: No - MUSCULOSKELETAL Hx Musculoskeletal Disorders: Yes Hx Back Injury: Yes Hx Gout: Yes - PSYCH Hx Psych Problems: Yes Hx Anxiety: Yes - HEMATOLOGY/ONCOLOGY Hx Hematology/Oncology Disorders: Yes Hx Cancer: Yes (skin (basal & squamous cell)) Family Medical History Any Significant Family History?: Yes Hx Heart Disease: Father, Mother Physical Exam - General General Appearance: Alert, Oriented x3, Cooperative - Head Head exam: Normal inspection - Eye Eye exam: Normal appearance, PERRL, EOMI Pupils: Normal accommodation - ENT ENT exam: Normal exam, Mucous membranes moist, Normal external ear exam, Normal orophraynx Ear exam: Normal external inspection. negative: External canal tenderness Nasal Exam: Normal inspection. negative: Discharge, Sinus tenderness Mouth exam: Normal external inspection, Tongue normal Teeth exam: Normal inspection. negative: Dental caries Throat exam: Normal inspection. negative: Tonsillar erythema, Tonsillar exudate - Neck Neck exam: Normal inspection, Full ROM. negative: Tenderness - Respiratory Respiratory exam: Normal lung sounds bilaterally. negative: Respiratory distress - Cardiovascular Cardiovascular Exam: Regular rate, Normal rhythm, Normal heart sounds - GI/Abdominal GI/Abdominal exam: Soft, Normal bowel sounds. negative: Tenderness - Rectal Rectal exam: Deferred - exam: Deferred - Extremities Extremities exam: Normal inspection, Full ROM, Normal capillary refill. negative: Tenderness - Back Back exam: Reports: Normal inspection, Full ROM. Denies: Muscle spasm, Rash noted, Tenderness - Neurological Neurological exam: Alert, CN II-XII intact, Normal gait, Oriented X3 - Psychiatric Psychiatric exam: Normal affect, Normal mood - Skin Skin exam: Dry, Intact, Normal color, Warm Course Vital Signs 11/24/18 11/24/18 10:30 12:17 Temperature 97.9 F Pulse Rate 72 Pulse Rate [ 60 Pulse Ox Probe] Respiratory 20 18 Rate Blood Pressure 140/66 Blood Pressure 119/52 [Right Arm] Pulse Ox 96 97 - Reevaluation(s) Reevaluation #1: 11/24/18 13:23 pt feels better Medical Decision Making - Lab Data Result diagrams: 11/24/18 11:18 11/24/18 11:18 Lab Results 11/24/18 11/24/18 11/24/18 Range/Units 11:18 11:18 11:18 WBC 13.4 H (4.2-12.2) K/uL RBC 4.62 (3.80-5.40) M/uL Hgb 14.1 (11.6-16.0) gm/dl Hct 43.4 (35.0-47.0) % MCV 93.9 (81-97) fl MCH 30.5 (27-33) pg MCHC 32.5 (32-36) g/dl RDW 13.0 (11.5-14.5) % Plt Count 280 (130-400) K/uL MPV 11.2 H (7.4-10.4) fl Gran % 66.4 (47-80) % Lymphocytes % 25.1 (16-45) % Monocytes % 7.4 (0-9) % Eosinophils % 0.7 (0-6) % Basophils % 0.4 (0-6) % Absolute Neutrophils 8.90 Sodium 136 (136-145) mmol/L Potassium 4.4 (3.4-4.5) mmol/L Chloride 93 L (98-107) mmol/L Carbon Dioxide 27.0 (22-29) mmol/L Anion Gap 16.0 (7-16) BUN 29 H (8-23) mg/dL Creatinine 1.1 H (0.5-0.9) mg/dL Estimated GFR 51 mL/min Random Glucose 252 H (74-109) mg/dL Calcium 10.4 H (8.8-10.2) mg/dL Total Bilirubin 0.30 (0.2-1.0) mg/dL AST 22 (10.0-35.0) U/L ALT 25 (<33) U/L Alkaline Phosphatase 115 H (35-104) U/L Total Protein 7.8 (6.6-8.7) g/dL Albumin 4.9 (4.0-5.0) g/dL Globulin 2.9 (1.4-4.8) gm/dL Albumin/Globulin Ratio 1.7 (1.1-1.8) TSH 1.68 (0.270-4.20) uIU/mL Urine Color Yellow Urine Appearance Clear Urine pH 5.5 (5.0-8.0) Ur Specific D[place]agh <= 1.005 (1.002-1.030) Urine Protein Negative (NEGATIVE) Urine Glucose (UA) >=1000 mg/dl H (NEGATIVE) Urine Ketones Negative (NEGATIVE) Urine Blood Negative (NEGATIVE) Urine Nitrite Negative (NEGATIVE) Urine Bilirubin Negative (NEGATIVE) Urine Urobilinogen 0.2 (0.20 - 1.00) E.U./dL Ur Leukocyte Esterase Negative (NEGATIVE) Disposition Disposition: Discharge Clinical Impression: Dizziness, Hyperglycemia Disposition: Home, Self-Care Condition: (1) Good Instructions: Dizziness (ED) Additional Instructions: follow up with family doctor today. return sooner if worse. monitor glusoce. push fluids Quality - Quality Measures Quality Measures: N/A - Blood Pressure Screening Does Patient Have Any of the Following: Active Dx of HTN Blood Pressure Classification: Hypertensive Reading Systolic Measurement: 140 Diastolic Measurement: 66 Screening for High Blood Pressure: Patient Exclusion, Hx of HTN [G9744]
== END 2018-11-24 13:35 | disposition home or self-care (01) ==
LOC: ER 10:22
DX: R73.9 Hyperglycemia, unspecified (principal); R42 Dizziness and giddiness; H53.8 Other visual disturbances; I10 Essential (primary) hypertension; I50.9 Heart failure, unspecified
CPT/HCPCS: 80053; 81003; 84443; 85025; 99284

== ENCOUNTER 2019-03-12 20:13 | Emergency (ER) | payer MEDICARE, BC, OTHER ==
[2019-03-12] MEDS ORDERED: 0.9 % SODIUM CHLORIDE 1,000 ML BAG IV ONE (20:32)
--- NOTE | 2019-03-12 20:42 | Emergency Department Record ---
History of Present Illness - General Chief Complaint: Dizziness Stated Complaint: HYPERTENSION Time Seen by Provider: 03/12/19 20:31 Source: Patient Mode of Arrival: Ambulatory Limitations: No limitations - History of Present Illness Initial Comments: The patient is here due to not feeling well for the last 4 days. She began to have intermittent nausea and dizziness 4 days ago and did just start Aricept. The symptoms have been coming and going all week. She did see her PCP for it 2 days ago and it was felt it could have been due to the Aricept so it was stopped. Tonight the patient states she just 'felt horrible" and was nauseated again. Her family took her BP and it was 190's on the top so she took a half of a Toprol and decided to come to the ER. Presently she feels back to normal and denies any problems. There has been no hx of any SANTOS, CP, SOB, PIERO, AP, back pain, dysuria or fevers. MD Complaint: Dizziness, Lightheadedness Onset/Timin -: Hour(s) Timing: Unsure Description: Lightheadedness, Nausea History of Same: No History of Trauma: No Severity: Mild Improves With: Nothing Worsens With: Nothing - Dirk Coma Scale Eye Response: (4) Open spontaneously Motor Response: (6) Obeys commands Verbal Response: (5) Oriented [place] Total: 15 - Related Data Home Medications Medication Instructions Recorded Confirmed Last Taken Donepezil HCl 10 mg PO DAILY 03/12/19 03/12/19 Unknown Empagliflozin [Jardiance] 1 tab PO DAILY 03/12/19 03/12/19 Unknown Olmesartan Medoxomil 40 mg PO DAILY 03/12/19 03/12/19 Unknown Previous Rx's Medication Instructions Recorded Potassium Chloride 10 meq PO DAILY #7 tablet.er 03/12/19 Allergies Allergy/AdvReac Type Severity Reaction Status Date / Time codeine AdvReac NAUSEA AND Verified 03/12/19 20:37 VOMITING meperidine HCl [From Demerol] AdvReac NAUSEA AND Verified 03/12/19 20:37 VOMITING morphine AdvReac NAUSEA AND Verified 03/12/19 20:37 VOMITING Travel Screening - Travel/Exposure Within Last 30 Days Have you traveled within the last 30 days?: No - Travel/Exposure Within Last Year Have you traveled outside the [place] in the last year?: No - Additonal Travel Details Have you been exposed to anyone with a communicable illness?: No - Travel Symptoms Symptom Screening: None Review of Systems Constitutional: Denies: Chills, Fever Eyes: Denies: Eye discharge ENT: Denies: Congestion Respiratory: Denies: Cough Cardiovascular: Denies: Arrhythmia Endocrine: Denies: Fatigue Gastrointestinal: Reports: Nausea. Denies: Abdominal pain Genitourinary: Denies: Dysuria Musculoskeletal: Denies: Arthralgia Skin: Denies: Bruising Past Medical History - SOCIAL HISTORY Smoking Status: Never smoker Alcohol Use: Rare Drug Use: None - RESPIRATORY Hx Respiratory Disorders: No - CARDIOVASCULAR Hx Cardio Disorders: Yes Hx CHF: Yes Hx Edema: Yes Hx Hypertension: Yes Comment:: high cholesterol - NEURO Hx Neuro Disorders: No - GI Hx GI Disorders: Yes Hx of Polyps: Yes - Hx Genitourinary Disorders: No - ENDOCRINE Hx Endocrine Disorders: No - MUSCULOSKELETAL Hx Musculoskeletal Disorders: Yes Hx Back Injury: Yes Hx Gout: Yes - PSYCH Hx Psych Problems: Yes Hx Anxiety: Yes - HEMATOLOGY/ONCOLOGY Hx Hematology/Oncology Disorders: Yes Hx Cancer: Yes (skin (basal & squamous cell)) Family Medical History Any Significant Family History?: Yes Hx Cancer: Father Hx Heart Disease: Father, Mother Physical Exam - General General Appearance: Alert, Oriented x3, Cooperative, No acute distress - Head Head exam: Atraumatic, Normocephalic, Normal inspection - Eye Eye exam: Normal appearance, PERRL, EOMI - ENT Throat exam: Normal inspection. negative: Tonsillar erythema, Tonsillar exudate - Neck Neck exam: Normal inspection, Full ROM. negative: Tenderness - Respiratory Respiratory exam: Normal lung sounds bilaterally. negative: Respiratory distress - Cardiovascular Cardiovascular Exam: Regular rate, Normal rhythm, Normal heart sounds - GI/Abdominal GI/Abdominal exam: Soft, Normal bowel sounds. negative: Rebound, Rigid, Tenderness - Extremities Extremities exam: Normal inspection, Full ROM, Normal capillary refill. negative: Tenderness - Back Back exam: Denies: Normal inspection, Vertebral tenderness - Neurological Neurological exam: Alert, Normal gait, Oriented X3. negative: Abnormal gait, Altered, Motor sensory deficit Course Vital Signs 03/12/19 20:27 Pulse Rate 74 Respiratory 18 Rate Blood Pressure 176/70 Pulse Ox 97 - Reevaluation(s) Reevaluation #1: The patient is doing a lot better at this time. She is up walking without any difficulty or pain. She denies any Cp, SOB, PIERO, AP, SANTOS or nausea. I did discuss the fact that her Bp's are normal and the need to take her medicines regularly. We will add a short course of Potassium due to the mild hypokalemia. 03/12/19 21:43 Medical Decision Making - Data Complexity MDM Data: Labs Ordered and/or Reviewed, EKG Ordered and/or Reviewed - Lab Data Result diagrams: 03/12/19 20:58 03/12/19 20:58 - EKG Data -: EKG Interpreted by Me EKG: No Acute Changes (Afib at 64, LVH possibly with no ischemic changes.) - Radiology Data Radiology results: Report reviewed Disposition Disposition: Discharge Clinical Impression: Hypokalemia Disposition: Home, Self-Care Condition: (2) Stable Instructions: Hypertension (ED) Additional Instructions: Please continue your regular medicines and take the potassium starting tomorrow. Please see your doctor next week for recheck and return to the ER for any worsening symptoms. Prescriptions: Potassium Chloride 10 meq PO DAILY #7 tablet.er Forms: Patient Portal Access Time of Disposition: 21:46 Quality - Quality Measures Quality Measures: N/A - Blood Pressure Screening View Details: Yes Does Patient Have Any of the Following: Active Dx of HTN Blood Pressure Classification: Hypertensive Reading Systolic Measurement: 156 Diastolic Measurement: 73 Screening for High Blood Pressure: Patient Exclusion, Hx of HTN [G9744]
[2019-03-12 21:07] LABS: ABSOLUTE NEUTROPHIL COUNT 8.31; BASO % 0.4 % (0-6); EOS % 0.4 % (0-6); GRAN % 69.7 % (47-80); HEMATOCRIT 43.6 % (35.0-47.0); HEMOGLOBIN 14.2 gm/dl (11.6-16.0); LYMPH % 18.3 % (16-45); MEAN CELL VOLUME 91.4 fl (81-97); MEAN CORPUSCULAR HEMOGLOBIN 29.8 pg (27-33); MEAN CORPUSCULAR HGB CONC 32.6 g/dl (32-36); MEAN PLATELET VOLUME 10.2 fl (7.4-10.4); MONO % 11.2 % (0-9); PLATELET COUNT 286 K/uL (130-400); RED BLOOD COUNT 4.77 M/uL (3.80-5.40); RED CELL DISTRIBUTION WIDTH 13.3 % (11.5-14.5); WHITE BLOOD COUNT W/O DIFF 11.9 K/uL (4.2-12.2)
[2019-03-12 21:17] LABS: BLOOD UREA NITROGEN 22 mg/dL (8-23); CREATININE 0.8 mg/dL (0.5-0.9); EST GLOMERULAR FILTRATION RATE > 60 mL/min; TOTAL PROTEIN 7.8 g/dL (6.6-8.7)
[2019-03-12 21:19] LABS: GLUCOSE,RANDOM 137 mg/dL (74-109)
[2019-03-12] MEDS ORDERED: POTASSIUM CHLORIDE 20 MEQ TABLET PO ONE (21:21)
[2019-03-12 21:22] LABS: ALB/GLOB RATIO 1.7 (1.1-1.8); ALBUMIN 4.9 g/dL (4.0-5.0); ALKALINE PHOSPHATASE 79 U/L (35-104); ALT/SGPT 17 U/L (<33); AST/SGOT 23 U/L (10.0-35.0)
== END 2019-03-12 21:59 | disposition home or self-care (01) ==
LOC: ER 20:13
DX: E87.6 Hypokalemia (principal); R11.0 Nausea; R42 Dizziness and giddiness; I10 Essential (primary) hypertension; I50.9 Heart failure, unspecified
CPT/HCPCS: 80053; 84484; 85025; 93005; 93010; 99284; J7030